=== PATIENT | female | born 2000 | race Caucasian/White ===

== ENCOUNTER 2021-10-09 22:42 | Emergency (ER) | payer BC, SELFPAY ==
[2021-10-09 22:44] VITALS: BP 145/99; PULSE 124; RESP 20; TEMP 36.4; O2SAT 98
[2021-10-09 22:51] VITALS: O2SAT 99
[2021-10-09] MEDS: methylPREDNISolone SOD SUCC 125 MG VIAL IV PUSH (22:54)
[2021-10-09] MEDS: EPINEPHrine HCL INJ 1 MG/ML AMPUL 0.3 MG SUB-Q (22:57)
[2021-10-09] MEDS: SODIUM CHLORIDE 0.9% IV 1,000 ML 150 ML IV CONT (22:58)
[2021-10-09] MEDS: FAMOTIDINE 20 MG/2 ML VIAL IV PUSH (23:00)
[2021-10-09 23:02] VITALS: BP 135/89; PULSE 109; RESP 18; O2SAT 98
--- NOTE | 2021-10-09 23:21 | PC.NURSE ---
Pt transferred to bedside commode without difficulty.
--- NOTE | 2021-10-09 23:49 | ED.ALLEREA ---
HPI - Allergic Reaction General Chief complaint: Allergic Reaction Stated complaint: hives, difficulty breathing Time Seen by Provider: 10/09/21 22:45 Source: patient and family Mode of arrival: ambulatory Limitations: no limitations History of Present Illness HPI narrative: 21-year-old with no major medical problems here with complaints of hives and difficulty breathing started approximately 1 hour ago. Patient states that she came back from work started experiencing the symptoms. Patient denies eating or taking new medications. Had similar allergic reactions in the past MD complaint: allergic reaction and hives Onset (ago): hour(s) (1) Exposure: unknown Symptoms: rash, itching and difficulty breathing Severity: moderate Treatment prior to arrival: other (Claritin) Previous Allergic Reaction History: prior ED visit(s) Related Data Allergies Allergy/AdvReac Type Severity Reaction Status Date / Time diphenhydramine Allergy Unknown Verified 10/09/21 22:54 [From Benadryl] Tide Allergy Hives Uncoded 10/09/21 22:54 Review of Systems Review of Systems: All systems reviewed & are unremarkable except as noted in HPI and below Constitutional: Constitutional: Reports no additional constitutional complaints Eyes: Eyes: Reports no additional eye complaints ENT: Reports system reviewed and no additional complaints, except as documented Cardiovascular: Cardiovascular: Reports no additional cardiovascular complaints Respiratory: Respiratory: Reports no additional respiratory complaints Gastrointestinal: Gastrointestinal: Reports no additional gastrointestinal complaints Musculoskeletal: Musculoskeletal: Reports no additional musculoskeletal complaints Integumentary/Breasts: Skin/Breast: Reports as per HPI Exam Narrative: GENERAL: Well-appearing, well-nourished, anxious HEAD: Normocephalic, atraumatic. EYES: PERRLA and EOMI. ENT: Nares clear, no rhinorrhea or epistaxis. Mucous membranes moist. Uvula midline NECK: Supple. CHEST: Clear to auscultation. No respiratory distress. HEART: Regular rate and rhythm. No murmur heard. Normal peripheral pulses. ABDOMEN: Soft, nontender, nondistended, normal active bowel sounds. EXTREMITIES: Normal range of motion. No edema. SKIN: Warm, urticarial lesions noted on the chest and back NEURO: No focal deficits. Alert and oriented x3. PSYCH: Normal mood and affect. Course Course Emergency Course: Patient was having hard time breathing did give her 0.3 of epi, IV Solu-Medrol and Pepcid. Her symptoms slowly dissipated and she is feeling much better. Reevaluation(s) Reevaluation #1: pt feeling much better , advised her to take prednisone as prescribed. Date: 10/10/21 Time: 00:26 Vital Signs Vital signs: Vital Signs Temperature 36.4 C 10/09/21 22:44 Pulse Rate 124 H 10/09/21 22:44 Respiratory Rate 20 10/09/21 22:44 Blood Pressure 145/99 H 10/09/21 22:44 Pulse Oximetry 98 10/09/21 22:44 Temperature 36.4 C 10/09/21 22:44 Pulse Rate 104 H 10/09/21 23:52 Respiratory Rate 16 10/09/21 23:52 Blood Pressure 135/89 10/09/21 23:02 Pulse Oximetry 98 10/09/21 23:52 Critical Care Time Critical Care Time Critical Care Time: Yes Total Critical Care Time: 45 Discharge Plan Discharge Clinical Impression: Allergic reaction Qualifiers: Encounter type: initial encounter Qualified Code(s): T78.40XA - Allergy, unspecified, initial encounter Patient Disposition: Home, Self-Care Condition: Stable Instructions: Antibiotic Form, Allergies (ED) Prescriptions: New prednisone 20 mg tablet 20 mg PO BID Qty: 14 RF: 0 Follow-up/Referrals: PHYSICIAN NOT ON STAFF,NONSTAFF [Primary Care Provider] - Lalo Turner MD [Physician] - Time of Disposition: 00:27
[2021-10-09 23:52] VITALS: PULSE 104; RESP 16; O2SAT 98
[2021-10-10 00:41] VITALS: BP 106/68; PULSE 98; RESP 17; O2SAT 98
== END 2021-10-10 00:42 | disposition home or self-care (01) ==
PROVIDERS: Emergency Provider Family Medicine
DX: T78.40XA Allergy, unspecified, initial encounter (principal)
CPT/HCPCS: 96361; 96374; 96375; 99284; J0171; J2930; J7030

== ENCOUNTER 2022-09-02 20:28 | Emergency (ER) | payer BC, SELFPAY ==
--- NOTE | ~2022-09-02 | XR_ITS ---
EXAMINATION: XR chest 2V Exam Date/Time: 09/02/2022 20:55 CDT HISTORY: MIDSTERNAL CHEST PAIN, DX WITH LUPUS THIS PAST WEEK Comparison: None available. RESULT: Lines, tubes, and devices: None. Lungs and pleura: Clear. Cardiomediastinal silhouette: Normal. Other: No acute osseous or upper abdominal finding. IMPRESSION: No acute cardiopulmonary process. Reviewed, dictated and finalized at location K.
[2022-09-02 20:31] VITALS: BP 138/90; PULSE 97; RESP 16; TEMP 36.6; O2SAT 99
--- NOTE | 2022-09-02 20:35 | ECG_ITS ---
Measurements Intervals [place] Rate: 92 P: 23 WV: 140 QRS: 11 QRSD: 89 T: 9 QT: 328 QTc: 406 Interpretive Statements SINUS RHYTHM MODERATE VOLTAGE CRITERIA FOR LVH, CONSIDER NORMAL VARIANT [MEETS CRITERIA IN ONE OF: R(aVL), S(V1), R(V5), R(V5/V6)+S(V1)] NO PREVIOUS ECG AVAILABLE FOR COMPARISON Electronically Signed On 09-03-2022 14:52:42 CDT by Chiara Short M.D.
--- NOTE | 2022-09-02 20:47 | ED.CHESTPAIN ---
HPI - Chest Pain General Chief Complaint: Chest Pain Stated Complaint: Chest pain Time Seen by Provider: 09/02/22 20:46 Source: patient Mode of arrival: ambulatory Limitations: no limitations History of Present Illness HPI narrative: Patient is a 22-year-old female with a history of chronic back pain, positive lupus anticoagulant testing, presenting to the emergency department for evaluation of chest pain. Patient reports acute onset of chest pain approximately 1 hour prior to arrival. Described as aching in nature, worsened with deep inspiration. No positional changes. Patient denies cough or hemoptysis. She denies fever or chills. Patient denies recent long car or air travel. No history of coagulopathy. She does take oral control. She does not smoke. Patient denies any radiation of the pain to the flank, no ripping or tearing sensation to the pain. 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 She recently had testing done for lupus anticoagulant which was positive. She has not received a lupus diagnosis and is not on any immune modulator therapy. Related Data Home Medications Medication Instructions Recorded Confirmed clonidine HCl 0.1 mg tablet mg 09/02/22 duloxetine 20 mg capsule,delayed mg PO 09/02/22 release Allergies Allergy/AdvReac Type Severity Reaction Status Date / Time diphenhydramine Allergy Unknown Verified 09/02/22 20:53 [From Benadryl] Tide Allergy Hives Uncoded 10/09/21 22:54 Review of Systems Review of Systems: CONSTITUTIONAL: Denies fever, chills, or sweats. EYES: Denies visual changes, redness, or discharge. ENT: Denies rhinorrhea, congestion, sore throat, or otalgia. CARDIOVASCULAR: Reports frontal chest pain without palpitations or edema RESPIRATORY: Denies cough or dyspnea. GASTROINTESTINAL: Denies abdominal pain, nausea, vomiting, or diarrhea. GENITOURINARY: Denies dysuria or hematuria. SKIN: Denies rash or itching. MUSCULOSKELETAL: Denies back pain, joint pain, or myalgia. NEUROLOGIC: Denies headache, numbness, or weakness. [facility] Social History Social History (Updated 09/02/22 @ 21:48 by Kaycee Martin MD) Smoking status: Never smoker Alcohol intake: never Substance use: never Living arrangements: with family Gender identity (if verbalized by the patient): Female Exam Narrative: GENERAL: Awake, alert, conversant HEAD: Normocephalic, atraumatic. EYES: PERRLA and EOMI. ENT: Nares clear, no rhinorrhea or epistaxis. Mucous membranes moist. NECK: Supple. CHEST: No respiratory distress, breathing even and non labored, positive frontal chest wall tenderness which reproduces pain on exam, no ecchymosis HEART: Regular rate, sinus rhythm ABDOMEN:Non distended, non tender EXTREMITIES: Normal range of motion. No edema. SKIN: Warm, dry, no rash. NEURO:No focal deficits. Alert and oriented x3 Course Vital Signs Vital signs: Vital Signs Temperature 36.6 C 09/02/22 20:31 Pulse Rate 97 09/02/22 20:31 Respiratory Rate 16 09/02/22 20:31 Blood Pressure 138/90 09/02/22 20:31 Pulse Oximetry 99 09/02/22 20:31 Oxygen Delivery Room Air 09/02/22 20:31 Temperature 36.6 C 09/02/22 20:31 Pulse Rate 97 09/02/22 20:31 Respiratory Rate 16 09/02/22 20:31 Blood Pressure 138/90 09/02/22 20:31 Pulse Oximetry 99 09/02/22 20:31 Oxygen Delivery Room Air 09/02/22 20:31 MDM - Chest Pain MDM Narrative Medical decision making narrative: Patient presenting for evaluation of chest pain. Patient's EKG and labs are without significant high risk changes. Cardiac risk factors reviewed. Patient is felt low risk for ACS and reasonable for further risk stratification testing as an outpatient. Pain was not sudden or maximal or onset without tearing or ripping quality. No other signs or symptoms to suggest aortic dissection. D-dimer is not elevated, thus CTA is not indicated. Awaiting second troponin.
[2022-09-02 21:00] LABS: Basophils Percent Auto 0.5 % (0.2-1.2); Eosinophils Percent Auto 0.6 % (0-4.4); Hematocrit 39.2 % (37.0-47.0); Hemoglobin 13.1 g/dL (12.0-15.0); Immature Granulocyte Absolute 0.01 K/mm3 (0.00-0.031); Immature Granulocyte Percent A 0.2 % (0-0.5); Lymphocytes Absolute Auto 2.13 K/mm3 (0.9-3.2); Lymphocytes Percent Auto 33.2 % (18.3-44.2); Mean Corpuscular HGB Conc 33.4 g/dl (32-36); Mean Corpuscular Hemoglobin 29.7 pg (26-34); Mean Corpuscular Volume 88.9 fl (80-100); Mean Platelet Volume 10.5 fl (7.4-10.4); Monocytes Absolute Auto 0.4 K/mm3 (0.1-0.6); Monocytes Percent Auto 6.4 % (2.6-8.5); Neutrophils Absolute Auto 3.8 K/mm3 (1.3-6.7); Neutrophils Percent Auto 59.1 % (45.5-73.1); Platelet Count Result 192 k/mm3 (150-375); Red Blood Count 4.41 M/mm3 (4.2-5.4); Red Cell Distribution Width 12.3 % (11.5-14.5); White Blood Count 6.4 K/mm3 (4.5-10.0)
[2022-09-02] MEDS: ASPIRIN 81 MG CHEWABLE TABLET 324 MG PO (21:08)
[2022-09-02 21:10] LABS: Alanine Aminotransferase 23 U/L (6-35); Albumin Level 4.7 g/dL (3.5-5.1); Alkaline Phosphatase 70 U/L (38-126); Anion Gap 12 mmol/L (8-16); Aspartate Amino Transferase 28 U/L (14-36); Bilirubin,Total 0.4 mg/dL (0.2-1.3); Blood Urea Nitrogen 15 mg/dL (7-17); Calcium 9.3 mg/dL (8.4-10.2); Carbon Dioxide 23 mmol/L (22-30); Chloride 105 mmol/L (98-107); Estimated CRCL calculation 126 ml/min; Estimated Glomerular Filt Rate > 60; Glucose 106 mg/dL (65-110); Sodium 140 mmol/L (137-145)
[2022-09-02 21:11] LABS: Prothrombin Time 12.7 Seconds (11.1-14.7)
[2022-09-02 21:12] LABS: Partial Thromboplastin Time 34.6 SECONDS (22.3-36.8)
[2022-09-02 21:22] LABS: NT Pro B Type Natriuretic Pept 26 pg/mL (5-100); Troponin I < 0.012 ng/mL (0.000-0.034)
[2022-09-02 21:32] LABS: D Dimer 0.45 ug/mL (<0.48)
[2022-09-02] MEDS: KETOROLAC 15 MG/ML VIAL (*BKC) IV PUSH (21:59)
[2022-09-02 23:00] VITALS: BP 113/76; PULSE 76; PULSE 89; RESP 14; O2SAT 99
--- NOTE | 2022-09-02 23:00 | PC.NURSE ---
Assumed care of pt. at this time. Report from FLAKO Ngo
[2022-09-03 01:00] VITALS: BP 130/74; PULSE 77; RESP 19; O2SAT 100
[2022-09-03 01:00] LABS: Troponin I < 0.012 ng/mL (0.000-0.034)
[2022-09-03 02:00] VITALS: BP 123/87; PULSE 85; RESP 19; O2SAT 99
== END 2022-09-03 02:00 | disposition home or self-care (01) ==
PROVIDERS: Emergency Provider Emergency Medicine
DX: R07.89 Other chest pain (principal); D68.62 Lupus anticoagulant syndrome
CPT/HCPCS: 36415; 71046; 80053; 83880; 84484; 85025; 85380; 85610; 85730; 93005; 96374; 99284; A9270; J1885

== ENCOUNTER 2022-12-09 21:00 | Emergency (ER) | payer BC, SELFPAY ==
[2022-12-09] VITALS (13 sets, daily range): BP systolic 113–145; BP diastolic 92–106; PULSE 84–104; RESP 14–31; TEMP 36.6; O2SAT 92–100
--- NOTE | ~2022-12-09 | XR_ITS ---
Clinical Indication: Shortness of breath PA and lateral views of the chest: Comparison: 09/02/2022 Findings: The lungs are clear, without evidence of focal consolidation or pleural effusion. Cardiome diastinal silhouette is within normal limits. Calcified right suprahilar lymph nodes are again presen t. Bones and soft tissues are unremarkable. Impression: Clear lungs. Stable calcified right suprahilar lymph nodes. Reviewed, dictated and finalized at location . [employer] ENGINEERING MANAGER Impression: Clear lungs. Stable calcified right suprahilar lymph nodes.
--- NOTE | 2022-12-09 21:13 | ECG_ITS ---
Measurements Intervals [place] Rate: 97 P: 21 NV: 110 QRS: 32 QRSD: 85 T: 5 QT: 325 QTc: 413 Interpretive Statements SINUS RHYTHM WITH SHORT NV INTERVAL BORDERLINE T WAVE ABNORMALITY- ANTERIOR LEADS BASELINE WANDER- V1, V6 BORDERLINE ECG COMPARED TO ECG 09/02/2022 20:39:16 NO SIGNIFICANT CHANGES Electronically Signed On 12-10-2022 7:53:38 CONSULTING SERVICES PROJECT MANAGER by Twin Alvarez D.O.
--- NOTE | 2022-12-09 21:24 | ED.SYNCOPE ---
HPI - Syncope General Chief Complaint: Syncope Stated Complaint: SOB Time Seen by Provider: 12/09/22 21:08 History of Present Illness HPI narrative: 22-year-old female presents to the emergency room for evaluation of shortness of breath and a unwitnessed syncopal episode. Patient is accompanied by her boyfriend who is assisting with the history. Reportedly the patient was at home trying to get out of bed when she became weak in the legs passed out. Boyfriend found her on the floor put her back up into bed. States that she has been short of breath and slow to respond to questions. Patient is breathing at 30 times a minute and whispering when answering questions. Boyfriend states that the patient is on multiple medications and has a history of positive lupus antibody but is not taking medications for it. Patient states that she has been diagnosed with pseudoseizures, and takes duloxetine for her movements . Related Data Home Medications Medication Instructions Recorded Confirmed clonidine HCl 0.1 mg tablet mg 09/02/22 duloxetine 20 mg capsule,delayed mg PO 09/02/22 release Allergies Allergy/AdvReac Type Severity Reaction Status Date / Time diphenhydramine Allergy Unknown Verified 12/09/22 21:06 [From Benadryl] Tide Allergy Hives Uncoded 12/09/22 21:06 Review of Systems Review of Systems: CONSTITUTIONAL: Denies fever, chills, or sweats. EYES: Denies visual changes, redness, or discharge. ENT: Denies rhinorrhea, congestion, sore throat, or otalgia. CARDIOVASCULAR: Denies chest pain, palpitations, or edema. RESPIRATORY: Reports dyspnea. GASTROINTESTINAL: Denies abdominal pain, nausea, vomiting, or diarrhea. GENITOURINARY: Denies dysuria or hematuria. SKIN: Denies rash or itching. MUSCULOSKELETAL: Denies back pain, joint pain, or myalgia. NEUROLOGIC: Denies headache, numbness, dizziness, or weakness. PSYCHIATRIC: Denies anxiety or depression. [facility] Social History Social History Smoking status: Never smoker Alcohol intake: never Substance use: never Gender identity (if verbalized by the patient): Female Exam Narrative: GENERAL: Well-appearing, well-nourished, no physical limitations, and in no acute distress. HEAD: Normocephalic, atraumatic. EYES: Conjunctivae normal, PERRLA and EOMI. NECK: Supple. CHEST: Expiratory wheezing. Tachypnea. HEART: Regular rate and rhythm. No murmur heard. Normal peripheral pulses. EXTREMITIES: Normal range of motion. No edema. No clubbing or cyanosis SKIN: Warm, dry, no rash. No noted wounds NEURO: No focal deficits. Alert and oriented x3. MAEW. CN's II-XI intact bilaterally, normal gait PSYCH: Uncooperative and anxious, whispering when answering questions Course Vital Signs Vital signs: Vital Signs Temperature 36.6 C 12/09/22 21:06 Pulse Rate 97 12/09/22 21:06 Respiratory Rate 24 H 12/09/22 21:06 Blood Pressure 145/92 H 12/09/22 21:06 Pulse Oximetry 99 12/09/22 21:06 Oxygen Delivery Room Air 12/09/22 21:06 Temperature 36.6 C 12/09/22 21:06 Pulse Rate 98 12/09/22 21:46 Respiratory Rate 24 H 12/09/22 21:06 Blood Pressure 133/97 H 12/09/22 21:46 Pulse Oximetry 98 12/09/22 21:38 Oxygen Delivery Room Air 12/09/22 21:38 MDM - Syncope MDM Narrative Medical decision making narrative: 22-year-old female presenting to the emergency room for evaluation of a unwitnessed syncopal episode. Patient was found to be whispering on her initial history, and was uncooperative at times. On multiple reevaluations, patient was found to be making repetitive movements with her head. Chest x-ray showed no acute cardiopulmonary disease CABG showed no signs of hypoxia. Lab work was unremarkable. EKG shows no signs of active ischemia. Patient likely experienced a vasovagal episode. Lab Data 12/09/22 21:15 12/09/22 21:14 Labs: Lab Results
[2022-12-09 21:37] LABS: Basophils Percent Auto 0.4 % (0.2-1.2); Eosinophils Absolute Auto 0.1 K/mm3 (0-0.3); Eosinophils Percent Auto 0.9 % (0-4.4); Hematocrit 39.3 % (37.0-47.0); Immature Granulocyte Absolute 0.01 K/mm3 (0.00-0.031); Immature Granulocyte Percent A 0.2 % (0-0.5); Lymphocytes Absolute Auto 2.05 K/mm3 (0.9-3.2); Mean Corpuscular HGB Conc 33.1 g/dl (32-36); Mean Corpuscular Hemoglobin 29.3 pg (26-34); Mean Corpuscular Volume 88.5 fl (80-100); Mean Platelet Volume 10.8 fl (7.4-10.4); Monocytes Absolute Auto 0.4 K/mm3 (0.1-0.6); Neutrophils Absolute Auto 3.2 K/mm3 (1.3-6.7); Neutrophils Percent Auto 55.5 % (45.5-73.1); Platelet Count Result 211 k/mm3 (150-375); Red Blood Count 4.44 M/mm3 (4.2-5.4); Red Cell Distribution Width 12.7 % (11.5-14.5); White Blood Count 5.7 K/mm3 (4.5-10.0)
[2022-12-09 22:06] LABS: Alanine Aminotransferase 23 U/L (6-35); Albumin Level 4.6 g/dL (3.5-5.1); Alkaline Phosphatase 64 U/L (38-126); Anion Gap 9 mmol/L (8-16); Aspartate Amino Transferase 27 U/L (14-36); Bilirubin,Total 0.2 mg/dL (0.2-1.3); Blood Urea Nitrogen 10 mg/dL (7-17); Calcium 9.2 mg/dL (8.4-10.2); Carbon Dioxide 24 mmol/L (22-30); Chloride 105 mmol/L (98-107); Estimated Glomerular Filt Rate > 60; Glucose 103 mg/dL (65-110); Potassium 3.9 mmol/L (3.4-5.0); Sodium 138 mmol/L (137-145)
[2022-12-09 23:01] LABS: Alveolar/Arterial O2 Gradient 54.6 mmHg; Base Excess ABG -0.5 mEq/l (+/-2.0); Fractional Inspired Oxygen 21 %; HCO3 ABG 23.8 mEq/l (22.0-26.0); Oxygen Content ABG 16.1 %vol (16.0-22.0); PCO2 ABG 38.4 mmHg (35.0-45.0); PO2 FiO2 Ratio Arterial Blood 2.34 %; Total Hemoglobin 13.6 g/dL (12.0-18.0); pH ABG 7.411 (7.350-7.450)
[2022-12-09 23:03] LABS: PO2 ABG 49.1 mmHg (80.0-100.0)
[2022-12-09 23:04] LABS: Oxygen Saturation ABG 85.3 % (95.0-100.0)
[2022-12-09 23:05] LABS: Device ROOM AIR; Modified Allen's Test Pass; Oxyhemoglobin 84.4 % THb (90.0-100.0); Site Drawn LEFT RADIAL
== END 2022-12-09 23:45 | disposition home or self-care (01) ==
PROVIDERS: Emergency Medicine; Emergency Provider Nurse Practitioner Family
DX: R55 Syncope and collapse (principal); R94.31 Abnormal electrocardiogram [ECG] [EKG]
CPT/HCPCS: 36415; 36600; 71046; 80053; 82805; 85025; 93005; 99283